=== PATIENT | male | born 1970 | race Caucasian/White ===

== ENCOUNTER 2016-10-14 01:59 | Emergency (ER) | payer MEDICAID ==
[2016-10-14] MEDS ORDERED: KETOROLAC 60 MG/2 ML VIAL IM ONE (03:07)
== END 2016-10-14 04:26 | disposition home or self-care (01) ==
LOC: ER 01:59
DX: S80.01XA Contusion of right knee, initial encounter (principal)
CPT/HCPCS: 96372